=== PATIENT | female | born 1945 | race Caucasian/White ===

== ENCOUNTER 2016-12-25 11:34 | Observation (INO) | payer MEDICARE ==
[~2016-12-25 11:34] MED LIST: ACTO45TA15 PO; AMAR4TAB PO; AMLO5 PO; ASPI-516 CHEW; LYRI75CA PO; MOBI7.5T PO; PRIL20TA2; RANI150T PO; SIMV20TA PO
[2016-12-25] MEDS ORDERED: IOHEXOL 350 MG/ML 10 ML VIAL (for RAD DIAG) IVCONTRAST ONE (13:30)
[2016-12-25 13:59] VITALS: BP 147/65; PULSE 73; RESP 18; TEMP 98; O2SAT 98
[2016-12-25] MEDS ORDERED: METOCLOPRAMIDE HCL 10 MG/2 ML VIAL IV PUSH PRN (14:00)
[2016-12-25] MEDS ORDERED: ACETAMINOPHEN 325 MG TAB PO PRN ×2 (14:00)
[2016-12-25] MEDS ORDERED: MAGNESIUM HYDROXIDE SUSP 30 ML CUP PO PRN (14:00)
[2016-12-25] MEDS ORDERED: TEMAZEPAM 15 MG CAP PO PRN (14:00)
[2016-12-25] MEDS ORDERED: ACETAMINOPHEN/HYDROcodone 325 MG/5 MG TAB PO PRN (14:00)
[2016-12-25] MEDS ORDERED: NALOXONE HCL 0.4 MG/ML AMP IV PUSH PRN (14:00)
[2016-12-25] MEDS ORDERED: SODIUM CHLORIDE 0.9% FLUSH 10 ML FLUSH IV FLUSH PRN (14:00)
[2016-12-25] MEDS ORDERED: DEXTROSE 50% IN WATER 50 ML VIAL(D50) IV PUSH PRN (14:30)
[2016-12-25] MEDS ORDERED: GLUCAGON 1 MG/ML VIAL OTHER PRN (14:30)
--- NOTE | 2016-12-25 14:35 | HHI.HP ---
HPI Service [facility] Primary Care Physician No Primary Care Physician Admission Diagnosis Diagnoses: (1) Lower extremity pain, right Chief Complaint: Right lower extremity pain and swelling Travel History International Travel<30 Days: No Contact w/Intl Traveler <30 Da: No Traveled to Known Affected Are: No History of Present Illness 71-year-old female with a history of diabetes type 2, hypertension, hyperlipidemia who had recently undergone ileal bifem balloon angioplasty bilaterally 2 months ago, presented to the ED for evaluation of swelling of the proximal right lower extremity associated with now pain over the past 2-3 days rated 7/10 in intensity without any paresthesia that she also denies any weakness. States the pain is is constant and worse with ambulation. Review of Systems Except as stated in HPI: all other systems reviewed are Neg Past Family Social History Past Medical History High Cholesterol: Yes Diabetes: Yes Hypertension: Yes Past Surgical History 2 months status post bilateral iliofemoral balloon angioplasties Tonsillectomy Back surgery Reported Medications Ranitidine (Ranitidine HCl) 150 Mg Tab 150 Mg PO DAILY Prilosec (Omeprazole Magnesium) 20 Mg Tab Mg DAILY Simvastatin 20 Mg Tab 20 Mg PO DAILY Mobic (Meloxicam) 7.5 Mg Tab 7.5 Mg PO DAILY Lyrica (Pregabalin) 75 Mg Cap 75 Mg PO TID Norvasc (Amlodipine Besylate) 5 Mg Tab 5 Mg PO DAILY Actos (Pioglitazone HCl) 45 Mg Tab 45 Mg PO DAILY Amaryl (Glimepiride) 4 Mg Tab 4 Mg PO BID Take with breakfast or the first main meal Aspirin 81 Mg Chew 81 Mg CHEW DAILY Allergies: Coded Allergies: Penicillins (Verified Allergy, Unknown, Shortness of Breath, 12/25/16) azithromycin (Verified Allergy, Unknown, Shortness of Breath, 12/25/16) cefaclor (Verified Allergy, Unknown, Shortness of Breath, 12/25/16) sulfabenzamide (Verified Allergy, Unknown, Shortness of Breath, 12/25/16) throat closes up per pt Family History Mother from unknown cancer Father 3 years ago of cancer, had history of diabetes type 2 Social History Alcohol Use: No Tobacco Use: No Substance Use: No Physical Exam Vital Signs Vital Signs Date Time Temp Pulse Resp B/P (MAP) Pulse Ox O2 Delivery O2 Flow Rate FiO2 12/25/16 13:59 98.0 73 18 147/65 (92) 98 Physical Exam GENERAL: This is a well-nourished, well-developed patient, in no apparent distress. SKIN: No rashes, ecchymoses or lesions. Cool and dry. HEAD: Atraumatic. Normocephalic. No temporal or scalp tenderness. EYES: Pupils equal round and reactive. Extraocular motions intact. No scleral icterus. No injection or drainage. ENT: Nose without bleeding, purulent drainage or septal hematoma. Throat without erythema, tonsillar hypertrophy or exudate. Uvula midline. Airway patent. NECK: Trachea midline. No JVD or lymphadenopathy. Supple, nontender, no meningeal signs. CARDIOVASCULAR: Regular rate and rhythm without murmurs, gallops, or rubs. RESPIRATORY: Clear to auscultation. Breath sounds equal bilaterally. No wheezes , rales, or rhonchi. GASTROINTESTINAL: Abdomen soft, non-tender, nondistended. No hepato-splenomegaly , or palpable masses. No guarding. MUSCULOSKELETAL: Extremities without clubbing, cyanosis, or edema. No joint tenderness, effusion, or edema noted. No calf tenderness. Negative Homans sign bilaterally. NEUROLOGICAL: Awake and alert. Cranial nerves II through XII intact. Motor and sensory grossly within normal limits. Five out of 5 muscle strength in all muscle groups. Normal speech. Caprini VTE Risk Assessment Caprini VTE Risk Assessment: Mod/High Risk (score >= 2) Caprini Risk Assessment Model Point Value = 1 Point Value = 2 Point Value = 3 Point Value = 5 Age 41-60 Minor surgery BMI > 25 kg/m2 Swollen legs Varicose veins or History of unexplained or recurrent spontaneous Oral contraceptives or hormone replacement Sepsis (< 1 month) Serious lung disease, including pneumonia (< 1 month) Abnormal pulmonary function Acute myocardial infarction Congestive heart failure (< 1 month) History of inflammatory bowel disease Medical patient at bed rest Age 61-74 Arthroscopic surgery Major open surgery (> 45 min) Laparoscopic surgery (> 45 min) Malignancy Confined to bed (> 72 hours) Immobilizing plaster cast Central venous access Age >= 75 History of VTE Family history of VTE Factor V Leiden Prothrombin [id number] Lupus anticoagulant Anticardiolipin antibodies Elevated serum homocysteine Heparin-induced thrombocytopenia Other congenital or acquired thrombophilia Stroke (< 1 month) Elective arthroplasty Hip, pelvis, or leg fracture Acute spinal cord injury (< 1 month) Prophylaxis Regimen Total Risk Factor Score Risk Level Prophylaxis Regimen 0-1 Low Early ambulation 2 Moderate Order ONE of the following: *Sequential Compression Device (SCD) *Heparin 5000 units SQ BID 3-4 Higher Order ONE of the following medications: *Heparin 5000 units SQ TID *Enoxaparin/Lovenox 40 mg SQ daily (WT < 150 kg, CrCl > 30 mL/min) *Enoxaparin/Lovenox 30 mg SQ daily (WT < 150 kg, CrCl > 10-29 mL/min) *Enoxaparin/Lovenox 30 mg SQ BID (WT < 150 kg, CrCl > 30 mL/min) AND/OR *Sequential Compression Device (SCD) 5 or more Highest Order ONE of the following medications: *Heparin 5000 units SQ TID (Preferred with Epidurals) *Enoxaparin/Lovenox 40 mg SQ daily (WT < 150 kg, CrCl > 30 mL/min) *Enoxaparin/Lovenox 30 mg SQ daily (WT < 150 kg, CrCl > 10-29 mL/min) *Enoxaparin/Lovenox 30 mg SQ BID (WT < 150 kg, CrCl > 30 mL/min) AND *Sequential Compression Device (SCD) Assessment and Plan Assessment and Plan 71 year-old female with Right lower extremity pain and swelling Rule out occlusion vs embolism ACS per protocol with serial cardiac enzyme and EKGs Consultation to interventional radiology pending Will check abdomen/pelvis CTA with runoff Keep nothing by mouth after midnight, IVF History of diabetes type 2 Start insulin sliding scale and resume outpatient medications Hypertension, hyperlipidemia Resume outpatient medications DVT prophylaxis: B-SCDs Code Status Full code Discussed Condition With Patient, ED physician Garett Foreman MD Dec 25, 2016 14:35
[2016-12-25] MEDS ORDERED: SODIUM CHLOR 0.9% 1000 ML INJ 1,000 ML IV SCH (16:15)
--- NOTE | 2016-12-25 16:38 | EKG ---
Date Performed: 12/25/2016 Time Performed: 14:22:54 PTAGE: 71 years EKG: Sinus rhythm LEFT VENTRICULAR HYPERTROPHY AND ST-T CHANGE ABNORMAL ECG NO PREVIOUS TRACING DOCTOR: Vishal Pereira Interpretating Date/Time 12/25/2016 16:37:53
[2016-12-25 17:00] VITALS: BP 144/64; PULSE 72; RESP 18; TEMP 98.5; O2SAT 96
[2016-12-25] MEDS: INSULIN ASPART SUPPLEMENTAL SCALE SQ SCH ×2 (17:00→21:00)
[2016-12-25] MEDS: PREGABALIN 75 MG CAP PO SCH (18:33)
[2016-12-25] MEDS: FAMOTIDINE 20 MG TAB PO SCH ×2 (18:33→22:08)
--- NOTE | 2016-12-25 19:27 | RADRPT ---
EXAM DATE/TIME: 12/25/2016 16:59 [facility] COMPARISON: No previous studies available for comparison. INDICATIONS : Evaluate for occlusion. IV CONTRAST: 88 cc Omnipaque 350 (iohexol) IV RADIATION DOSE: 13.09 CTDIvol (mGy) MEDICAL HISTORY : Cardiovascular disease. SURGICAL HISTORY : Tubal ligation. Orthopedic Angioplasty of legs done in october ENCOUNTER: Initial ACUITY: 1 day PAIN SCALE: 5/10 LOCATION: Runoff TECHNIQUE: Volumetric scanning was performed using a multi-row detector CT scanner. The data was post processed with a variety of visualization algorithms including full volume maximum intensity projection, multi -planar sliding thin slab reformation, curved planar reformation, and surface rendering techniques. Using automated exposure control and adjustment of the mA and/or kV according to patient size, radiat ion dose was kept as low as reasonably achievable to obtain optimal diagnostic quality images. DICO M format image data is available electronically for review and comparison. FINDINGS: Aorta/inflow: Scattered calcified atherosclerotic plaque most abundant within the infrarenal aorta. There is fusifo rm dilatation of the infrarenal aorta reaching a maximum diameter of 3.7 x 3.2 cm. There is a stent w ithin the right common iliac artery. 30% luminal narrowing of the proximal end of the stent noted. Th e remaining common iliac artery and right external iliac artery are patent. Right internal iliac mike ry is highly stenotic. The left common iliac artery shows a 40% stenosis due to concentric calcified plaque. The left external iliac artery is patent. The left internal iliac artery is calcified and mod erately stenotic. Calcified plaque generates stenoses of the celiac and SMA. The celiac gives 40% whi le the SMA is 60%. 2 renal arteries supply each kidney. There is a main renal artery with accessory l ower pole renal artery on each side. The main renal artery on the right has a 60-70% stenosis and on the left 20-30% stenosis. Right lower extremity: Scattered calcified plaque involving the common femoral artery, SFA, and popliteal artery. There is a stent within the abductor canal extending into the popliteal artery. This is patent. The popliteal a rtery is patent. Significant trifurcation disease observed. The posterior tibial artery is chronicall y occluded distally with multiple high-grade stenoses proximally. The peroneal artery shows multiple moderate stenoses scattered throughout. Anterior tibial artery shows scattered areas of mild calcifie d plaque and luminal narrowing throughout. It is the sole runoff to the foot. Left lower extremity: Scattered calcified plaque throughout the outflow vessels. There is a 60% stenosis involving the SFA origin and 40% stenosis involving the distal SFA. The [id number]-bwtd popliteal artery shows a 60-70% stenosis at the level of the femoral condyles. Severe trifurcation disease noted. Diffuse disease inv olving the posterior tibial artery which tapers to very diminutive vessel at the level of the ankle j oint. Peroneal artery is diffusely disease. Anterior tibial artery show scattered areas of minimal at herosclerotic plaque but is otherwise patent. Other structures: A spinal stimulator seen involving the dorsal soft tissues. Heart is mildly enlarged. CONCLUSION: 1. 3.7 x 3.2 cm AAA. 2. Bilateral common iliac stenoses. 3. Right lower extremity shows patent outflow including a right above knee popliteal artery stent. Si gnificant trifurcation disease with sole runoff to the foot via the anterior tibial artery. 4. Left lower extremity has significant SFA origin, distal SFA, and oljpw-nag-tvwf popliteal disease. Less pronounced trifurcation disease than on the contralateral side. Runoff to the foot is via a dom inant anterior tibial artery and diminutive posterior tibial artery. 5. Bilateral renal artery, celiac, and SMA stenoses. Douglas Black Jr., MD on December 25, 2016 at 19:09 Board Certified Radiologist. This report was verified electronically.
[2016-12-25 20:30] VITALS: BP 144/65; PULSE 75; RESP 17; TEMP 97.9; O2SAT 93
--- NOTE | 2016-12-25 20:39 | EKG ---
Date Performed: 12/25/2016 Time Performed: 20:10:26 PTAGE: 71 years EKG: Sinus rhythm LEFT VENTRICULAR HYPERTROPHY AND ST-T CHANGE ABNORMAL ECG No significant change from prior electroca rdiogram. PREVIOUS TRACING : 12/25/2016 14.22 DOCTOR: Vishal Pereira Interpretating Date/Time 12/25/2016 20:38:04
[2016-12-25 20:53] LABS: CREATINE KINASE 66 U/L (26-192)
[2016-12-25] MEDS: GLIMEPIRIDE 4 MG TAB PO SCH (22:07)
[2016-12-25] MEDS: SODIUM CHLORIDE 0.9% FLUSH 10 ML FLUSH IV FLUSH SCH (22:09)
[2016-12-26 00:15] VITALS: BP 157/68; PULSE 77; RESP 17; TEMP 97.1; O2SAT 93
[2016-12-26 03:12] LABS: AUTOMATED NEUTROPHIL # 3.3 TH/MM3 (1.8-7.7); BASOPHIL # 0.1 TH/MM3 (0-0.2); BASOPHIL % 0.9 % (0.0-2.0); EOSINOPHIL # 0.3 TH/MM3 (0-0.4); EOSINOPHIL % 4.9 % (0.0-4.0); HEMATOCRIT 36.3 % (35.0-46.0); HEMO FLAGS DIFF FINAL; LYMPH % 24.6 % (9.0-44.0); LYMPHOCYTE # 1.4 TH/MM3 (1.0-4.8); MEAN CELL VOLUME 88.3 FL (80.0-100.0); MEAN CORPUSCULAR HEMOGLOBIN 29.2 PG (27.0-34.0); MONO % 10.1 % (0.0-8.0); NEUT % 59.5 % (16.0-70.0); PLATELET COUNT 200 TH/MM3 (150-450); RED BLOOD COUNT 4.11 MIL/MM3 (4.00-5.30); RED CELL DISTRIBUTION WIDTH 14.2 % (11.6-17.2); WHITE BLOOD COUNT 5.5 TH/MM3 (4.0-11.0)
[2016-12-26 03:23] LABS: ALT (GPT) 24 U/L (10-53); ANION GAP 7 MEQ/L (5-15); AST (GOT) 13 U/L (15-37); BICARBONATE 27.4 MEQ/L (21.0-32.0); BLOOD UREA NITROGEN 18 MG/DL (7-18); CHLORIDE 107 MEQ/L (98-107); GLOMERULAR FILTRATION RATE 80 ML/MIN (>89); POTASSIUM 3.5 MEQ/L (3.5-5.1); SODIUM (NA) 141 MEQ/L (136-145)
[2016-12-26 03:25] LABS: ALKALINE PHOSPHATASE 70 U/L (45-117); TOTAL BILIRUBIN ADULT 0.3 MG/DL (0.2-1.0)
[2016-12-26 03:40] LABS: CREATINE KINASE 54 U/L (26-192)
[2016-12-26 05:52] VITALS: BP 129/59; PULSE 67; RESP 17; TEMP 98.2; O2SAT 93
[2016-12-26 08:00] VITALS: BP 156/66; PULSE 70; RESP 18; TEMP 98.6; O2SAT 95
[2016-12-26] MEDS: INSULIN ASPART SUPPLEMENTAL SCALE SQ SCH ×2 (08:00→12:00)
[2016-12-26] MEDS ORDERED: amLODIPine BESYLATE 5 MG TAB PO SCH (09:00)
[2016-12-26] MEDS ORDERED: PRAVASTATIN SOD 40 MG TAB PO SCH (09:00)
[2016-12-26] MEDS: SODIUM CHLORIDE 0.9% FLUSH 10 ML FLUSH IV FLUSH SCH (09:00)
[2016-12-26] MEDS ORDERED: ASPIRIN 81 MG CHEW TAB CHEW SCH (09:00)
[2016-12-26] MEDS ORDERED: PIOGLITAZONE HCL 45 MG TAB PO SCH (09:00)
[2016-12-26] MEDS: PREGABALIN 75 MG CAP PO SCH ×2 (09:24→12:51)
[2016-12-26] MEDS: GLIMEPIRIDE 4 MG TAB PO SCH (09:24)
--- NOTE | 2016-12-26 11:04 | HHI.PR ---
Subjective Remarks Follow-up for right leg pain Patient stated pain located in the right inner thigh area. She stated it started about 3 or 4 days ago abruptly. Pain is constant. She also has increased swelling which worsens when she stands up. Otherwise denies any pain in the left leg. Objective Vitals Vital Signs Date Time Temp Pulse Resp B/P (MAP) Pulse Ox O2 Delivery O2 Flow Rate FiO2 12/26/16 08:00 98.6 70 18 156/66 (96) 95 12/26/16 05:52 98.2 67 17 129/59 (82) 93 12/26/16 00:15 97.1 77 17 157/68 (97) 93 12/25/16 20:30 97.9 75 17 144/65 (91) 93 12/25/16 17:00 98.5 72 18 144/64 (90) 96 12/25/16 13:59 98.0 73 18 147/65 (92) 98 I/O 12/25/16 12/25/16 12/25/16 12/26/16 12/26/16 12/26/16 07:00 15:00 23:00 07:00 15:00 23:00 Intake Total 1078 ml Balance 1078 ml Intake Oral 240 ml IV Total 838 ml # Voids 4 Result Diagram: 12/26/1625212/26/16252 Objective Remarks GENERAL: in NAD CARDIOVASCULAR: Regular rate and rhythm without murmurs, gallops, or rubs. RESPIRATORY: Breath sounds equal bilaterally. No accessory muscle use. GASTROINTESTINAL: Abdomen soft, non-tender, nondistended. MUSCULOSKELETAL: 5/5 LE strength. no calf pain TTP in right inner thigh. + 2 DP right pulses. left faint DP pulse. sensation intact. Medications and IVs Current Medications Sodium Chloride (NS Flush) 2 ml UNSCH PRN IV FLUSH FLUSH AFTER USING IV ACCESS ; Start 12/25/16 at 14:00 Sodium Chloride (NS Flush) 2 ml BID IV FLUSH Last administered on 12/25/16t 22: 09; Start 12/25/16 at 21:00 Acetaminophen (Tylenol) 650 mg Q4H PRN PO TEMP > 100.4; Start 12/25/16 at 14:00 Metoclopramide HCl (Reglan Inj) 5 mg Q6H PRN IV PUSH NAUSEA OR VOMITING; Start 12/25/16 at 14:00 Temazepam (Restoril) 15 mg HS PRN PO INSOMNIA Last administered on 12/25/16 23 :39; Start 12/25/16 at 14:00 Acetaminophen (Tylenol) 650 mg Q6H PRN PO PAIN SCALE 1 TO 2; Start 12/25/16 at 14:00 Acetaminophen/ Hydrocodone Bitart (Gateway 5-325 Mg) 1 tab Q4H PRN PO PAIN SCALE 3 TO 5 Last administered on 12/25/16 22:31; Start 12/25/16 at 14:00 Naloxone HCl (Narcan Inj) 0.4 mg UNSCH PRN IV PUSH SEE LABEL COMMENTS; Start 12/25/16 at 14:00 Magnesium Hydroxide (Milk Of Magnmario Liq) 30 ml Q12H PRN PO Mild constipation ; Start 12/25/16 at 14:00 Dextrose (D50w (Vial) Inj) 50 ml UNSCH PRN IV PUSH HYPOGLYCEMIA-SEE COMMENTS; Start 12/25/16 at 14:30 Glucagon (Glucagon Inj) 1 mg UNSCH PRN OTHER HYPOGLYCEMIA-SEE COMMENTS; Start 12/25/16 at 14:30 Insulin Aspart (NovoLOG SUPPLEMENTAL SCALE) 1 ACHS SLIDING SCALE SQ ; Start at 17:00 Amlodipine Besylate (Norvasc) 5 mg DAILY PO Last administered on 12/26/16 09: 25; Start 12/26/16 at 09:00 Aspirin (Aspirin Chew) 81 mg DAILY CHEW Last administered on 12/26/16 09:24; Start 12/26/16 at 09:00 Glimepiride (Amaryl) 4 mg BID PO Last administered on 12/26/16 09:24; Start 12/25/16 at 21:00 Pioglitazone HCl (Actos) 45 mg DAILY PO Last administered on 12/26/16 09:24; Start 12/26/16 at 09:00 Pregabalin (Lyrica) 75 mg TID PO Last administered on 12/26/16 09:24; Start 12/25/16 at 18:00 Famotidine (Pepcid) 20 mg BID PO Last administered on 12/25/16 22:08; Start 12/25/16 at 16:00 Pravastatin Sodium (Pravachol) 40 mg DAILY PO Last administered on 12/26/16 09 :25; Start 12/26/16 at 09:00 Sodium Chloride 1,000 ml @ 84 mls/hr [id number] IV Last administered on 22:37; Start 12/25/16 at 16:15 Iohexol (Omnipaque 350 Inj) 88 ml STK-MED ONCE IVCONTRAST Last administered on 12/25/16 13:30; Start 12/25/16 at 13:30; Stop 12/25/16 at 17:43; Status DC A/P Problem List: (1) Lower extremity pain, right ICD Code: M79.604 - Pain in right leg Assessment and Plan 71 year-old female with Right lower extremity pain and swelling Rule out occlusion vs embolism CTA runoff shows mild disease. d/w IR Dr. Rajput over the phone recommend YONIS and will call back to discussed results to see if further intervention is needed. History of diabetes type 2 on insulin sliding scale and resume outpatient medications Hypertension, hyperlipidemia Resume outpatient medications DVT prophylaxis: B-SCDs Discharge Planning Will need to wait for YONIS to determine if patient needs further intervention. Discussed case with IR Dr. Woodard. Maria Elena Mann MD Dec 26, 2016 11:04
[2016-12-26 12:00] VITALS: BP 159/68; PULSE 77; RESP 18; TEMP 97.3; O2SAT 90
--- NOTE | 2016-12-26 14:37 | RADRPT ---
EXAM DATE/TIME: 12/26/2016 09:07 [facility] COMPARISON: No previous studies available for comparison. INDICATIONS : Arterial occlusion/reocclusion TECHNIQUE: Four-cuff ankle and brachial pressures were obtained. Pulse cuff waveform tracings of the ankles were recorded, and ankle-brachial indices were calculated. PRESSURES (mmHg): Brachial (arm): Right 171 Ankle: Right 108 Left 91 YONIS: Right 0.63 Left 0.53 TBI: Right 0.35 Left 0.51 PULSED CUFF WAVEFORMS: Ankle waveforms are preserved bilaterally but there is amplitude blunting in in the toes, left worse than right. CONCLUSION: Abnormal YONIS and TBI bilaterally. Findings are characteristic of a moderate PAD. Rob Woodard MD on December 26, 2016 at 14:32 Board Certified Radiologist. This report was verified electronically.
[2016-12-26 16:00] VITALS: BP 133/61; PULSE 72; RESP 18; TEMP 97.7; O2SAT 92
--- NOTE | 2016-12-26 16:41 | RADRPT ---
EXAM DATE/TIME: 12/26/2016 16:16 [facility] COMPARISON: No previous studies available for comparison. INDICATIONS : Right leg pain. MEDICAL HISTORY : Hypercholesterolemia. Arthritis. Osteoporosis. HTN. GERD. Diabetes. SURGICAL HISTORY : Angioplasty. Tubal ligation. Tonsillectomy. Cataract surgery. Back surgery. Spinal implant. ENCOUNTER: Initial ACUITY: 3 days PAIN SCORE: 7/10 LOCATION: Right leg. TECHNIQUE: Venous ultrasound of the leg was performed from the inguinal ligament to the proximal calf. Real-farzad e, color Doppler and spectral tracing, compression and augmentation techniques were used. FINDINGS: There is normal compressibility of the deep venous system from the inguinal region to the proximal ca lf. No echogenic clot is seen in the lumen of the common femoral, femoral, popliteal, and posterior tibial veins. There is a normal response of the venous system to proximal and distal augmentation an d respiration. CONCLUSION: No DVT is identified within the right lower extremity. Mark Kiser MD on December 26, 2016 at 16:39 Board Certified Radiologist. This report was verified electronically.
--- NOTE | 2016-12-26 17:08 | HHI.DCPOC ---
Discharge Care Plan Diagnosis: (1) Muscle strain (2) Lower extremity pain, right Goals to Promote Your Health * To prevent worsening of your condition and complications * To maintain your health at the optimal level Directions to Meet Your Goals Take your medications as prescribed Follow your dietary instruction Follow activity as directed Keep your appointments as scheduled Take your immunizations and boosters as scheduled If your symptoms worsen call your PCP, if no PCP go to Urgent Care Center or Emergency Room Smoking is Dangerous to Your Health. Avoid second hand smoke Call the 24-hour hour crisis hotline for domestic abuse at Maria Elena Mann MD Dec 26, 2016 17:08
--- NOTE | 2016-12-26 17:09 | HHI.DS ---
Discharge Summary Admission Date Dec 25, 2016 at 13:29 Discharge Date: Dec 26, 2016 Admitting Diagnosis (1) Lower extremity pain, right ICD Code: M79.604 - Pain in right leg Diagnosis: Principal (2) Muscle strain ICD Code: T14.8XXA - Other injury of unspecified body region, initial encounter Diagnosis: Principal Procedures See hospital course. Brief History - From Admission 71-year-old female with a history of diabetes type 2, hypertension, hyperlipidemia who had recently undergone ileal bifem balloon angioplasty bilaterally 2 months ago, presented to the ED for evaluation of swelling of the proximal right lower extremity associated with now pain over the past 2-3 days rated 7/10 in intensity without any paresthesia that she also denies any weakness. States the pain is is constant and worse with ambulation. CBC/BMP: 12/26/16 0253 12/26/16 0253 Significant Findings Laboratory Tests Test 12/25/16 19:40 12/26/16 02:53 Troponin I LESS THAN 0.02 NG/ML LESS THAN 0.02 NG/ML Monocytes (%) (Auto) 10.1 % (0.0-8.0) Eosinophils (%) (Auto) 4.9 % (0.0-4.0) Random Glucose 159 MG/DL (74-106) Albumin 3.2 GM/DL (3.4-5.0) Aspartate Amino Transf (AST/SGOT) 13 U/L (15-37) Estimat Glomerular Filtration Rate 80 ML/MIN (>89) Imaging Last Impressions Lower Extremity Ultrasound 12/26/16 1504 Signed Impressions: Service Date/Time: December 16:16 - CONCLUSION: No DVT is identified within the right lower extremity. Mark Kiser MD Aorta w/Runoff CTA 12/25/16 0000 Signed Impressions: Service Date/Time: Sunday, December 25, 2016 16:59 - CONCLUSION: 1. 3.7 x 3.2 cm AAA. 2. Bilateral common iliac stenoses. 3. Right lower extremity shows patent outflow including a right above knee popliteal artery stent. Significant trifurcation disease with sole runoff to the foot via the anterior tibial artery. 4. Left lower extremity has significant SFA origin, distal SFA, and ovlkj-lwo-ordh popliteal disease. Less pronounced trifurcation disease than on the contralateral side. Runoff to the foot is via a dominant anterior tibial artery and diminutive posterior tibial artery. 5. Bilateral renal artery, celiac, and SMA stenoses. Douglas Black Jr., MD PE at Discharge GENERAL: in NAD CARDIOVASCULAR: Regular rate and rhythm without murmurs, gallops, or rubs. RESPIRATORY: Breath sounds equal bilaterally. No accessory muscle use. GASTROINTESTINAL: Abdomen soft, non-tender, nondistended. MUSCULOSKELETAL: 5/5 LE strength. no calf pain. TTP in right inner thigh. + 2 DP right pulses. left faint DP pulse. sensation intact. Pt update on day of discharge Discussed with Dr. Rajput in regards to patient's pain and YONIS results. He stated that based on the location of her pain, CTA and YONIS results pain is not caused by peripheral vascular disease at all. He stated that there is really nothing that he can offer. I then did a lower extremity Doppler to rule out DVT and that was also negative. I saw patient again and her the bedside. She was doing better and results were discussed with them extensively and all questions were answered where they were satisfied. Hospital Course 71 year-old female with who presented with right inner thigh pain. Patient was admitted to rule out any occlusion versus embolism. She had a CTA runoff which showed only mild disease. Patient then had a YONIS which showed moderate peripheral vascular disease on the left side. Case was discussed with Dr. Rajput who stated that pain is not due to any peripheral vascular disease. Patient then had a lower extremity Doppler which was negative for any DVT. Most likely pain was due to a muscle strain. Recommend pain control and icing as needed. Patient stated she already had hydrocodone at home which does control her pain. Patient has been told if pain worsens or any concerns do not hesitate to return to the hospital. Pt Condition on Discharge: Stable Discharge Disposition: Discharge Home Discharge Time: > 30 minutes Discharge Instructions DIET: Follow Instructions for: Heart Healthy Diet, Diabetic Diet Activities you can perform: See Additionl Instruction Other Activity Instructions: Try to rest leg for a couple days and light activity unless pain resolves or improves. Follow up Referrals: PCP Follow-up - 1 Week Continued Medications: Amlodipine (Norvasc) 5 Mg Tab 5 MG PO DAILY for Blood Pressure Management, #30 TAB 0 Refills Aspirin (Aspirin) 81 Mg Chew 81 MG CHEW DAILY, TAB 0 Refills Glimepiride (Amaryl) 4 Mg Tab 4 MG PO BID for Blood Sugar Management, #60 TAB 0 Refills Take with breakfast or the first main meal Meloxicam (Mobic) 7.5 Mg Tab 7.5 MG PO DAILY for Pain, TAB 0 Refills Omeprazole Magnesium (Prilosec) 20 Mg Tab MG DAILY Pioglitazone (Actos) 45 Mg Tab 45 MG PO DAILY for Blood Sugar Management, #30 TAB 0 Refills Pregabalin (Lyrica) 75 Mg Cap 75 MG PO TID, #90 CAP 0 Refills Ranitidine (Ranitidine) 150 Mg Tab 150 MG PO DAILY for Heartburn Management, #30 TAB 0 Refills Simvastatin (Simvastatin) 20 Mg Tab 20 MG PO DAILY for Cholesterol Management, #30 TAB 0 Refills Maria Elena Mann MD Dec 26, 2016 17:09
--- NOTE | 2016-12-27 15:28 | RADRPT ---
EXAM DATE/TIME: 12/25/2016 14:43 [facility] COMPARISON : INDICATIONS : Evaluate for possible angiogram. OBJECTIVE: HISTORY OF PRESENT ILLNESS: History a PAD with prior stenting. Patient reportedly has focal pain in the right thigh region. IMAGING STUDIES: CTA and ABIs were obtained. ABIs are abnormal bilaterally characteristic of moderately severe PAD. CT A showed prior stent in the right common iliac artery and right above knee popliteal. There is some n arrowing at the origin of the right iliac stent and calcified plaque in the proximal left common jt c may result in a flow limiting stenosis of the left lower extremity. There appears to be some intima l hyperplasia in the above-knee popliteal stent is well. Otherwise, three-vessel runoff bilaterally w ith some segmental stenosis in the peroneal vessels. ASSESSMENT: Patient has a PA and sonographic findings of moderate PAD with prior stents in the right common iliac artery and above-knee popliteal just below the adductor hiatus also on the right. However, according to the clinical service, patient has focal discomfort in the right thigh area that is constant and n ot exacerbated by ambulation. As such, this does not appear to represent true claudication. PLAN: While patient does have atherosclerotic disease in the lower extremities, current clinical symptomato logy is not consistent with PAD. TIME SPENT: 15 minutes Rob Woodard MD on December 27, 2016 at 15:20 Board Certified Radiologist. This report was verified electronically.
== END 2016-12-26 17:41 | disposition home or self-care (01) ==
LOC: NEDDLT 13:19 → N05B 13:29
PROVIDERS: ADMIT Family Medicine; ATTEND Family Medicine
DX: M79.604 Pain in right leg (principal); M79.89 Other specified soft tissue disorders; R94.31 Abnormal electrocardiogram [ECG] [EKG]; I74.5 Embolism and thrombosis of iliac artery; I71.4 Abdominal aortic aneurysm, without rupture; I70.1 Atherosclerosis of renal artery; I77.4 Celiac artery compression syndrome; K55.1 Chronic vascular disorders of intestine; I11.9 Hypertensive heart disease without heart failure; E78.00 Pure hypercholesterolemia, unspecified; E11.51 Type 2 diabetes mellitus with diabetic peripheral angiopathy without gangrene; I73.9 Peripheral vascular disease, unspecified; K21.9 Gastro-esophageal reflux disease without esophagitis; M81.0 Age-related osteoporosis without current pathological fracture; M19.90 Unspecified osteoarthritis, unspecified site; Z79.899 Other long term (current) drug therapy; Z79.82 Long term (current) use of aspirin
CPT/HCPCS: 75635; 80048; 80053; 82550; 82948; 84484; 85025; 85610; 85730; 93005; 93922; 93971; 99283; G0378; J7030; Q9967